=== PATIENT | male | born 1995 | race African-American/Black ===

== ENCOUNTER 2016-04-24 20:54 | Emergency (ER) | payer OTHER ==
[2016-04-24 22:27] VITALS: BP 106/66
[2016-04-24] MEDS ORDERED: Ondansetron INJ* 2 MG/ML VIAL IV ONE (23:36)
[2016-04-24] MEDS ORDERED: NS 0.9% 1000 ML* 1,000 ML IV ONE (23:36)
--- NOTE | 2016-04-25 00:02 | ED ---
Shady Mcmahan Billy, scribed for Bernardo Chavez MD on 04/24/16 at 2222 . Influenza-Like Illness - HPI Summary HPI Summary: Patient is a 20 year-old male coming to [facility] presenting with onset of abdominal cramping last night. He states that he woke up this morning feeling worse, along with N/V/D, VELÁZQUEZ, chills, and diaphoresis. Denies any blood in the stool. Motrin bridgett today at 1999 improved his symptoms. Denies recent travel or antibiotic use. - History of Current Complaint Chief Complaint: EDFluSymptoms Time Seen by Provider: 04/24/16 22:14 Hx Obtained From: Patient Onset/Duration: Gradual Onset, Lasting Hours, Still Present Severity: Moderate Associated Signs & Symptoms: Headache, Vomiting, Diarrhea - Allergy/Home Medications Allergies/Adverse Reactions: Allergies Allergy/AdvReac Type Severity Reaction Status Date / Time No Known Allergies Allergy Verified 04/24/16 20:59 PMH/Surg Hx/FS Hx/Imm Hx Endocrine/Hematology History: Denies: Hx Diabetes Cardiovascular History: Denies: Hx Hypertension Infectious Disease History: No Infectious Disease History: Denies: Traveled Outside the [place] in Last 30 Days - Family History Known Family History: Negative: Cardiac Disease, Hypertension, Diabetes - Social History Occupation: Student Alcohol Use: Occasionally Smoking Status (MU): Never Smoked Tobacco Review of Systems Positive: Chills, Skin Diaphoresis Positive: Abdominal Pain, Vomiting, Diarrhea, Nausea Positive: Headache All Other Systems Reviewed And Are Negative: Yes Physical Exam - Summary Physical Exam Summary: VITAL SIGNS: Reviewed. GENERAL: Patient is a well developed and nourished male who is lying comfortable in the stretcher. Patient is not in any acute respiratory distress. HEAD AND FACE: Normocephalic and atraumatic. EYES: PERRLA, EOMI x 2, No injected conjunctiva. EARS: Hearing grossly intact. Ear canals and tympanic membranes are WNL. MOUTH: Oropharynx within normal limits. NECK: Supple, trachea is midline, no adenopathy, no JVD. CHEST: Symmetric, no tenderness at palpation LUNGS: Clear to auscultation bilaterally. No wheezing or crackles. CVS: RRR,, S1 and S2 present, no murmurs or gallops appreciated. ABDOMEN: Soft, non-tender. No signs of distention. Positive bowel sounds. No rebound no guarding, and no masses palpated. No abdominal bruit or pulsations. EXTREMITIES: FROM in all major joints, no edema, no cyanosis or clubbing. NEURO: Alert and oriented x 3. No acute neurological deficits. Speech is normal. SKIN: Dry and warm Triage Information Reviewed: Yes Vital Signs On Initial Exam: Initial Vitals Temp Pulse Resp BP Pulse Ox 97.8 F 104 18 120/70 99 04/24/16 20:59 04/24/16 20:59 04/24/16 20:59 04/24/16 20:59 04/24/16 20:59 Vital Signs Reviewed: Yes Diagnostics - Vital Signs Vital Signs Temp Pulse Resp BP Pulse Ox 04/24/16 20:59 97.8 F 104 18 120/70 99 - Laboratory Lab Statement: Any lab studies that have been ordered have been reviewed, and results considered in the medical decision making process. Re-Evaluation - Re-Evaluation First Eval Re-Evaluation Time: 23:58 Change: Improved Flu Symptom Course/Dx - Course Assessment/Plan: Patient is a 20 year-old male coming to [facility] presenting with onset of abdominal cramping last night. He states that he woke up this morning feeling worse, along with N/V/D, VELÁZQUEZ, chills, and diaphoresis. Denies any blood in the stool. Motrin token today at 2000 improved his symptoms. Denies recent travel or antibiotic use. He reports that he is feeling better. He spoke to his mother and they decided that he does not want any bloodwork or IV fluids. The patient is signout out AMA and will be discharged home to follow up with PCP. I extensively discussed with the patient the benefits and risk of leaving AMA. I also discussed the alternatives to leaving AMA, however, the patient still insist to leave the hospital AMA.. The primary nurse and the charge nurse also strongly recommended that the patient should not leave AMA. Patient understands the risk of leaving AMA, which includes but is not restricted to . Patient is Alert and oriented times three and patient verbalizes understanding. Patient has full capacity and is cognitively intact. Patient signed the AMA form. Patient was also advised to return to ED if he changes his mind or if the symptoms worsen or other symptoms appear. Patient understands and agrees - Diagnoses Differential Diagnosis/HQI/PQRI: Positive: Influenza, Other - Abdominal pain, diarrhea, gastroenteritis Provider Diagnoses: Nausea vomiting and diarrhea Discharge - Discharge Plan Condition: Stable Disposition: AGAINST MEDICAL ADVICE Patient Education Materials: Acute Nausea and Vomiting (ED), Acute Diarrhea (ED ) Referrals: [facility] [Outside] The documentation as recorded by the Shady baptiste Billy accurately reflects the service I personally performed and the decisions made by me, Bernardo Chavez MD.
== END 2016-04-24 23:56 | disposition left against medical advice (07) ==
LOC: ED 20:54
DX: R11.2 Nausea with vomiting, unspecified (principal); R19.7 Diarrhea, unspecified; R51 Headache; R61 Generalized hyperhidrosis
CPT/HCPCS: 96374; 99281; J2405